=== PATIENT | female | born 1975 | race Caucasian/White ===

== ENCOUNTER → 2018-01-31 | Outpatient (CLI) | payer SELFPAY ==
[~2018-01-31] MED LIST: CIPRO 500MG TA500 MG PO; FLOMAX 0.40.4 MG/CAP PO; NAPROSYN500 MG PO; NO HOME MEDICATIONS; NORCO 325 MG-51 TAB PO; ZITHROMAX Z PA250 MG PO; ZOFRAN 4MG T4 MG/TAB PO
== END ==
LOC: COL.RAD 13:00
DX: R05 Cough (principal); F17.200 Nicotine dependence, unspecified, uncomplicated